=== PATIENT | male | born 1985 | race Caucasian/White ===

== ENCOUNTER 2024-06-24 00:55 | Emergency (ER) | payer BC, SELFPAY ==
[2024-06-24 01:00] VITALS: BP 130/88; BMI 21.6
[2024-06-24 01:18] LABS: Urine Albumin 2+ (Neg - Trace); Urine Bilirubin Negative (Negative); Urine Character Cloudy (Clear); Urine Color Yellow; Urine Glucose Negative (Negative); Urine Ketone Negative (Negative); Urine Leukocyte Negative (Negative); Urine Nitrite Negative (Negative); Urine Occult Blood 3+ (Negative); Urine Urobilinogen Negative (Neg - 1+)
[2024-06-24 01:21] LABS: % Basophils 0.4 % (0-2); % Immature Granulocytes 0.2 % (0-0.5); % Lymphocytes 36.1 % (20.5-51.1); % Monocytes 8.6 % (1.7-9.3); % Neutrophils 54.7 % (42.2-75.2); Absolute Lymphocytes 1.9 10^3/uL (1.2-3.4); Absolute Monocytes 0.5 10^3/uL (0.1-0.6); Hematocrit 43.5 % (39.0-52.0); Hemoglobin 15.1 g/dL (13.0-18.0); Mean Corp Hgb Conc. 34.7 g/dL (33.0-37.0); Mean Corpuscular Hgb 31.3 pg (27.0-31.0); Mean Corpuscular Volume 90.2 fL (80.0-94.0); Mean Platelet Volume 9.6 fL (7.4-10.4); Nucleated Red Blood Cells % 0 % (-); Platelet Count 210 10^3/uL (130-400); Red Blood Cell Count 4.82 10^6/uL (4.70-6.10); Red Cell Dist. Width 11.7 % (11.5-14.5); White Blood Cell Count 5.4 10^3/uL (4.8-10.8)
[2024-06-24 01:33] LABS: ALT (SGPT) 30 U/L (0-50); AST (SGOT) 26 U/L (17-59); Albumin 5.3 g/dl (3.5-5.0); Alkaline Phosphatase 35 U/L (38-126); Blood Urea Nitrogen 19 mg/dl (9-20); Carbon Dioxide 21 mmol/L (22-30); Chloride 107 mmol/L (98-107); Estimated Creatinine Clearance 104 ml/min; Glucose 94 mg/dl (70-99); Sodium 142 mmol/L (135-145); Total Bilirubin 0.6 mg/dl (0.2-1.3); eGFR > 60.00
[2024-06-24 01:36] LABS: Urine Red Blood Cell 0-2 /HPF (0-2); Urine Sperm Seen; Urine Squamous Cell None seen /LPF (Few); Urine White Cell 0-2 /HPF (0-5)
[2024-06-24 02:00] VITALS: BP 113/73
[2024-06-24 03:00] VITALS: BP 122/79
[2024-06-24] MEDS: KEPPRA 1500 MG IV (03:29)
--- NOTE | 2024-06-24 03:42 | ED.GENMED ---
History of Present Illness
General
Chief Complaint: Seizure
Source: patient
Time Seen by Provider: 06/24/24 03:02
History of Present Illness
History of Present Illness:
Pleasant 39-year-old male presents to the emergency department with seizure. Seizure was witnessed by his . It was a wake-up seizure. He states that his last seizure was also at night and over 3 years ago. Patient states that his
witnessed the seizure and it lasted approximately 1 minute. Patient denies loss of bowel or bladder. Denies fever, chills, nausea or vomiting. Patient estimates that he has had approximately 10 seizures since his diagnosis several years ago.
Review of Systems
Review of Systems
Allergies reviewed?: Yes
All Other Systems: ROS reviewed and negative except as documented in HPI and ROS
Constitutional: Reports no symptoms
EENT: Reports no symptoms
Respiratory: Reports no symptoms
Cardiac: Reports no symptoms
ABD/GI: Reports no symptoms
: Reports no symptoms
Musculoskeletal: Reports no symptoms
Skin: Reports no symptoms
Neurological: Reports no symptoms
Endocrine: Reports no symptoms
Hematologic/Lymphatic: Reports no symptoms
Psychiatric: Reports no symptoms
Phy Exam
General Physical Exam
General Presentation: well appearing and no apparent distress
General Skin: warm and dry
General Habitus: normal
General Mental: alert
General Hydration: appears well hydrated
ENT Exam
ENT Exam: EOMI, pharynx normal, neck supple and normocephalic
Eye Exam
Eye Exam: PERRL, cornea clear and conjunctiva normal
Cardiovascular Exam
Cardiovascular Exam: regular rate/rhythm, no edema, no murmur and normal peripheral pulses
Pulmonary Exam
Pulmonary Exam: lungs clear, no respiratory distress, no rales, no crackles, no rhonchi, no stridor, no wheezing and no cough
Gastrointestinal Exam
Gastrointestinal Exam: normal bowel sounds, non tender, soft, no organomegaly, no pulsatile mass and non distended
Neurological Exam
Neurological Exam: alert, oriented x3, no motor deficits and speech normal
Musculoskeletal Exam
Musculoskeletal Exam: full ROM and no edema
Skin Exam
Skin Exam: normal color, warm/dry, no rash and no petechia
Psychiatric Exam
Psychiatric Exam: normal mood/affect
Course
Orders/Labs/Results
Orders:
Orders
06/24/24 00:59
Electrocardiogram (*1) Urgent
Reason for Study: Fatigue / Weakness
Other Reason for Exam: seizure
06/24/24 01:00
EKG- Treatment ONCE
06/24/24 01:10
Complete Blood Count/With Diff Urgent
Comprehensive Metabolic Panel Urgent
Urinalysis Reflex To Culture Urgent
Date Specimen was Collected: 06/24/24
Time Specimen was Collected: 01:00
Urine Microscopic Reflex Cult Urgent
06/24/24 03:16
Keppra (Levetiracetam) [S] Urgent
06/24/24 03:19
Levetiracetam Injectable [Keppra] 1,500 mg IV NOW STA
Abnormal Lab Results
06/24/24
01:10
MCH 31.3 H pg
(27.0-31.0)
Carbon Dioxide 21 L mmol/L
(22-30)
Alkaline Phosphatase 35 L U/L
(38-126)
Albumin 5.3 H g/dl
(3.5-5.0)
Ur Occult Blood Reflex 3+ A
(Negative)
Urine Albumin (Reflex) 2+ A
(Neg - Trace)
06/24/24 01:10
06/24/24 01:10
Vital Signs
Initial and Last Documented VS:
Initial Vital Signs
Temp Pulse Resp BP Pulse Ox
97.7 F 86 16 130/88 100
06/24/24 01:00 06/24/24 01:00 06/24/24 01:00 06/24/24 01:00 06/24/24 01:00
Last Documented Vital Signs
Temp Pulse Resp BP Pulse Ox
97.7 F 69 18 134/84 96
06/24/24 01:00 06/24/24 04:15 06/24/24 04:15 06/24/24 04:00 06/24/24 03:15
*Critical Care Note
Total Time (30-74mins, 75-104mins- exclusive of procedures): Not Applicable
Update Note
Update Note:
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 No suspension of license recommended because patient's seizures are only at night. According to the form no action needs to be taken. Form still faxed in.
ED Attending Note
-
Portions of this chart may have been created with voice recognition software.� Occasional wrong word or��sound alike� substitutions may have occurred due to the inherent limitations of voice recognition software.
Discharge Plan
Departure
Patient Disposition: Home (Routine Discharge)
Date of Disposition: 06/24/24
Time of Disposition: 04:50
Patient with high blood pressure during this ER visit?: Yes
Condition: Good
Discharge Problem:
Seizure
Instructions: Seizures, Adult (DC), BLOOD PRESSURE
Prescriptions:
No Action
levetiracetam [Keppra] 750 mg Tablet
750 mg PO BID
Claritin
1 tab PO DAILY
Referrals:
Paco Goetz MD [Family Provider] -
Activity Restrictions/Additional Instructions:
As discussed, please follow-up with your neurologist. Continue to take your Keppra as directed.
Thank You for choosing [facility].
It was a pleasure meeting you and taking part in your care. We hope for your continued healing and wellness.
Please read discharge instructions in their entirety. However, they are for general education and may not describe your exact diagnosis at discharge. Information on your ER visit and medical conditions were discussed with you along with appropriate
follow up information...
If indicated, please take your medications as instructed and indicated on discharge paperwork.
Please schedule a follow up appointment as directed. Call to schedule an appointment
Please return to the emergency department with ANY change in, persisting, or worsening of symptoms. If any of your symptoms do not improve, or persist, or become more severe within 6-12 hours, please return to the emergency department for further
care.
Please return to the emergency department if you develop a headache, neck pain/stiffness, fever greater than 100.4F, chest pain, shortness of breath, persistent nausea, vomiting, slurred speech, difficulty walking, numbness/tingling, weakness, signs
of infection or any other symptoms that are worrisome to you.
If you have any questions or concerns please do not hesitate to call the Hospital at or E-mail me directly at [email or web address]
Interventions
Interventions:
*Risk Screen - Suicide Last Done: 06/24/24 01:00
*General Assessment Last Done: 06/24/24 01:00
*Neglect/Abuse Screening Last Done: 06/24/24 01:00
*ED COVID-19 Vaccine History Last Done: 06/24/24 01:00
ED- Cardiac Assessment Last Done: 06/24/24 01:21
ED- Neurological Assessment Last Done: 06/24/24 01:21
ED- Pulmonary Assessment Last Done: 06/24/24 01:21
Discharge Date and Time
Print Language: BURKINAN
[2024-06-24 04:00] VITALS: BP 134/84
[2024-06-24 05:00] VITALS: BP 122/72
[2024-06-25 18:38] LABS: Keppra (Levetiracetam) 16 ug/mL (10-40)
== END 2024-06-24 05:10 | disposition home or self-care (01) ==
LOC: EMR 00:55
PROVIDERS: EMERGENCY PHYSICIAN Student in an Organized Health Care Education/Training Program; FAMILY PHYSICIAN Internal Medicine
DX: G40.909 Epilepsy, unspecified, not intractable, without status epilepticus (principal); R03.0 Elevated blood-pressure reading, without diagnosis of hypertension
CPT/HCPCS: 99284; 96374; 80053; 80177; 81003; 81015; 85025; 93005